=== PATIENT | male | born 1995 | race Caucasian/White ===

== ENCOUNTER 2017-02-16 04:26 | Emergency (ER) | payer BC ==
[~2017-02-16] VITALS: Ht 170.2 cm; Wt 70.0 kg
[2017-02-16 04:29] VITALS: TEMP 36.5; Ht 170.2 cm; Wt 70.0 kg
[2017-02-16 04:32] VITALS: O2SAT 100
[2017-02-16 05:34] LABS: CALCIUM 8.4 mg/dl (8.5-10.1); CREATININE 1.1 mg/dl (0.60-1.40); POTASSIUM 3.6 mmol/L (3.5-5.1)
[2017-02-16 11:10] VITALS: BP 114/74; PULSE 95; O2SAT 96
--- NOTE | 2017-02-16 17:01 | EMERGENCY ROOM VISIT NOTE ---
ED Visit Note First contact with patient: 09:27 Patient was signed out to me by Niya BASURTO. Please see his dictation for full history and physical. Patient remained stable this morning while in the ED. He was allowed to sleep until 11 AM. He was easily awoken had no complaints at that point. He was reassessed and had no complaints of pain or discomfort. Patient was discharged and instructed to register for his [employer] alcohol education class. Alcohol intoxication instructions were given. Avoid alcohol in the future. Tylenol and Motrin every 6 hours as needed for mild discomfort. Maintain hydration. Return to the ED for any other concerns. Current/Historical Medications No Active Prescriptions or Reported Meds Allergies Coded Allergies: No Known Allergies (Unverified , 02/16/17) Vital Signs Date Time Temp Pulse Resp B/P (MAP) Pulse Ox O2 Delivery O2 Flow Rate FiO2 02/16/17 11:10 95 16 114/74 96 Room Air 02/16/17 10:30 79 18 94/73 95 Room Air 02/16/17 09:00 80 18 126/73 96 Room Air 02/16/17 07:00 80 18 118/75 96 Room Air 02/16/17 06:57 75 02/16/17 06:00 79 19 100/58 95 Room Air 02/16/17 05:30 75 20 118/71 96 Room Air 02/16/17 05:00 92 16 127/72 98 Room Air 02/16/17 04:36 127 02/16/17 04:32 100 Room Air 02/16/17 04:29 36.5 124 18 150/105 100 Room Air Laboratory Results 02/16/17 04:58 Test 02/16/17 04:58 Anion Gap 9.0 mmol/L (3-11) Est Creatinine Clear Calc Drug Dose 101.0 ml/min Estimated GFR () 112.2 Estimated GFR (Non- 96.8 BUN/Creatinine Ratio 12.0 (10-20) Calcium Level 8.4 mg/dl (8.5-10.1) Ethyl Alcohol mg/dL 278.0 mg/dl (0-3) Departure Information Impression Primary Impression: Alcohol intoxication Dispostion Home / Self-Care Condition GOOD Prescriptions No Active Prescriptions or Reported Meds Forms HOME CARE DOCUMENTATION FORM, IMPORTANT VISIT INFORMATION Patient Instructions [facility] [employer] Students and Alcohol Related Visits Additional Instructions You were seen and evaluated today on an emergency basis only. This is not a substitute for, or an effort to provide, complete comprehensive medical care. It is not possible to recognize and treat all injuries or illnesses in a single emergency department visit. Keep well-hydrated. Small sips of water over a long period of time are better tolerated than large amounts at once. Tylenol 1000 mg every 6 hours as needed for pain (Maximum 3000 mg Tylenol in 24 hr period). Follow up with family doctor as needed. You are welcome to return to the emergency department anytime with new, worsening, or concerning symptoms.
--- NOTE | 2017-02-17 06:45 | EMERGENCY ROOM VISIT NOTE ---
ED Visit Note First contact with patient: 04:29 CHIEF COMPLAINT: Altered mental status from Alcohol overdose HISTORY OF PRESENT ILLNESS: This 21 year old male patient presents to the emergency department via ambulance for evaluation of altered mental status, presumably from alcohol intoxication. The patient was found by a [facility] police sleeping inside a stairwell outside of a bar. The patient was cooperative but was unsure where he was or where he lived. The patient does not report pain or injury. He is drinking alcohol tonight but denies drugs or substance abuse. He does not report chronic medical disease. REVIEW OF SYSTEMS: Review of systems was somewhat limited secondary to patient' s presumed alcohol intoxication status. Review of systems was performed to the best of our ability and reperformed as the patient began to sober up. All other systems were reviewed and are negative. ALLERGIES: See EMR MEDICATIONS: See EMR PMH: No chronic medical disease SOCIAL HISTORY: Student and lives locally PHYSICAL EXAM VITALS: Vitals are noted on the nurse's note and reviewed by myself. Vital signs stable. GENERAL: White male, who is in no acute distress and resting comfortably. Patient is visibly altered and smells of alcohol. HEAD: Normocephalic atraumatic. EARS: External ear normal. External auditory canals clear, tympanic membranes pearly cabrera without erythema or effusion bilaterally. EYES: Pupils equal round and reactive to light and accommodation. Conjunctivae without injection, sclerae without icterus. Extraocular movements intact. NOSE: Patent, turbinates without inflammation or discharge. MOUTH: Mucous membranes moist. Tonsils are not enlarged. Pharynx without erythema, blood, vomitus, or exudate. Uvula midline. Airway patent. NECK: Supple without nuchal rigidity. No lymphadenopathy. Cervical spine is nontender. HEART: Regular rate and rhythm without murmurs gallops or rubs. LUNGS: Clear to auscultation bilaterally without wheezes, rales or rhonchi. No retractions or accessory muscle use. ABDOMEN: Positive normal bowel sounds x 4. Soft, nontender, without masses or organomegaly. No guarding or rebound tenderness. MUSCULOSKELETAL: No muscle atrophy, erythema, or edema noted. Gross motor function intact to all extremities. NEURO: Patient was alert to person but not place or time. They appear with altered mental status. SKIN: The skin was without rashes, erythema, edema, or bruising. No Tenting of the skin. EMERGENCY DEPARTMENT COURSE: Physical exam and history was performed. Nursing notes and EMR were reviewed. The patient appears to be altered on my examination. I suspect this is from an alcohol overdose. Conservative care measures and aspiration precautions were instituted. The patient was placed on electronic device monitor and watched during the patient's stay. The patient was placed in a prone position. Blood work was obtained and was reviewed. The patient's blood alcohol level was 278. This appears to be the primary cause of the altered status. Patient was reevaluated multiple times throughout the course of their emergency department stay. He remained in stable condition until the time of shift change. The case was discussed with Quentin Sen PA-C who will assume care at this time. Please see Chandratessie's dictation for further patient course, plan, and final disposition. Current/Historical Medications No Active Prescriptions or Reported Meds Allergies Coded Allergies: No Known Allergies (Unverified , 02/16/17) Vital Signs Date Time Temp Pulse Resp B/P (MAP) Pulse Ox O2 Delivery O2 Flow Rate FiO2 02/16/17 11:10 95 16 114/74 96 Room Air 02/16/17 10:30 79 18 94/73 95 Room Air 02/16/17 09:00 80 18 126/73 96 Room Air 02/16/17 07:00 80 18 118/75 96 Room Air 02/16/17 06:57 75 02/16/17 06:00 79 19 100/58 95 Room Air 02/16/17 05:30 75 20 118/71 96 Room Air 02/16/17 05:00 92 16 127/72 98 Room Air 02/16/17 04:36 127 02/16/17 04:32 100 Room Air 02/16/17 04:29 36.5 124 18 150/105 100 Room Air Laboratory Results 02/16/17 04:58 Test 02/16/17 04:58 Anion Gap 9.0 mmol/L (3-11) Est Creatinine Clear Calc Drug Dose 101.0 ml/min Estimated GFR () 112.2 Estimated GFR (Non- 96.8 BUN/Creatinine Ratio 12.0 (10-20) Calcium Level 8.4 mg/dl (8.5-10.1) Ethyl Alcohol mg/dL 278.0 mg/dl (0-3) Departure Information Impression Primary Impression: Alcohol intoxication Dispostion Home / Self-Care Condition GOOD Prescriptions No Active Prescriptions or Reported Meds Forms HOME CARE DOCUMENTATION FORM, IMPORTANT VISIT INFORMATION Patient Instructions My [facility]: [employer] Students and Alcohol Related Visits Additional Instructions You were seen and evaluated today on an emergency basis only. This is not a substitute for, or an effort to provide, complete comprehensive medical care. It is not possible to recognize and treat all injuries or illnesses in a single emergency department visit. Keep well-hydrated. Small sips of water over a long period of time are better tolerated than large amounts at once. Tylenol 1000 mg every 6 hours as needed for pain (Maximum 3000 mg Tylenol in 24 hr period). Follow up with family doctor as needed. You are welcome to return to the emergency department anytime with new, worsening, or concerning symptoms.
== END 2017-02-16 11:16 | disposition home or self-care (01) ==
LOC: EDBD 04:26 → C.EDB 04:27
DX: F10.129 Alcohol abuse with intoxication, unspecified (principal)